=== PATIENT | female | born 1970 | race Two or more races ===

== ENCOUNTER 2018-07-12 08:17 | Emergency (ER) | payer BC ==
[~2018-07-12] VITALS: Ht 152.4 cm; Wt 77.1 kg
[2018-07-12] MEDS ORDERED: HYDROCODONE/APAP 10/325MG 1 EA TABLET ONE (08:39)
[2018-07-12] MEDS ORDERED: HYDROCODONE/APAP 10/325MG 1 EA TABLET PO ONE (09:00)
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
[2018-07-12 10:38] VITALS: BP 131/85
--- NOTE | 2018-07-12 10:39 | NUR ---
Patient discharged to home in stable condition. Written and verbal after care instructions given. Patient verbalizes understanding of instruction.
== END 2018-07-12 10:39 | disposition home or self-care (01) ==
LOC: ER 08:22
DX: S46.812A Strain of other muscles, fascia and tendons at shoulder and upper arm level, left arm, initial encounter (principal); I10 Essential (primary) hypertension; G89.29 Other chronic pain; M54.5 Low back pain; Z88.0 Allergy status to penicillin; V49.59XA Passenger injured in collision with other motor vehicles in traffic accident, initial encounter; Y93.89 Activity, other specified; Y92.413 State road as the place of occurrence of the external cause; Y99.8 Other external cause status
CPT/HCPCS: 73030; 73060; 73080; 99283; A4606; Z7610